=== PATIENT | male | born 1945 | race Caucasian/White ===

== ENCOUNTER 2021-04-05 08:32 | Emergency (ER) | payer MEDICARE, OTHER ==
[~2021-04-05] VITALS: Ht 182.9 cm; Wt 103.2 kg
[2021-04-05 08:46] VITALS: BP 145/77
[2021-04-05] MEDS ORDERED: APIX5TAB3 PO (11:02)
== END 2021-04-05 11:13 | disposition home or self-care (01) ==
LOC: ER 08:33
DX: I82.401 Acute embolism and thrombosis of unspecified deep veins of right lower extremity (principal); E11.9 Type 2 diabetes mellitus without complications; I10 Essential (primary) hypertension; Z88.8 Allergy status to other drugs, medicaments and biological substances
CPT/HCPCS: 93971; 99284

== ENCOUNTER 2021-07-05 07:53 | Inpatient (IN) | payer OTHER, MEDICARE ==
[~2021-07-05] VITALS: Ht 182.9 cm; Wt 112.0 kg
[~2021-07-05 07:53] MED LIST: APIX5TAB3 PO
[2021-07-05 09:23] LABS: CLARITY,URINE CLEAR (Clear); COLOR,URINE YELLOW (Yellow); GLUCOSE, URINE >=1000 mg/dl (Neg); KETONES,URINE 40 mg/dl (Neg); LEUKOCYTE ESTERASE ,URINE NEGATIVE (Neg); NITRITES, URINE NEGATIVE (Neg); OCCULT BLOOD,URINE TRACE-LYSED (Neg); PROTEIN,URINE 30 mg/dl (Neg); UROBILINOGEN,URINE 0.2 E.U/dL (0.2-1.0)
[2021-07-05 09:29] LABS: BASOPHILS # (AUTO) 0.1 X10'3 (0-0.2); BASOPHILS % (AUTO) 0.4 % (0-1); EOSINOPHILS % (AUTO) 0.2 % (0-6); HEMATOCRIT 44.9 % (42.0-52.0); HEMOGLOBIN 15.1 g/dl (14.0-17.9); LYMPHOCYTES # (AUTO) 0.8 X10'3 (1.1-4.8); MEAN CORPUSCULAR HEMOGLOBIN 31.2 PG (27.0-31.0); MEAN CORPUSCULAR HGB CONC 33.7 g/dL (33.0-36.5); MEAN CORPUSCULAR VOLUME 92.7 FL (78-98); MEAN PLATELET VOLUME 8.6 FL (7.4-10.4); MONOCYTES # (AUTO) 1.1 X10'3 (0-0.9); MONOCYTES % (AUTO) 6.7 % (2-12); NEUTROPHILS # (AUTO) 14.6 X10'3 (1.8-7.7); NEUTROPHILS % (AUTO) 87.7 % (42-75); PLATELET COUNT 228 X10'3 (140-440); RED BLOOD COUNT 4.84 X10'6 (4.70-6.10); RED CELL DISTRIBUTION WIDTH 12.8 % (11.5-14.5); WHITE BLOOD COUNT 16.7 X10'3 (4.5-11.0)
[2021-07-05 09:35] LABS: UA COLLECTION TYPE VOIDED
[2021-07-05 09:36] LABS: BACTERIA,URINE NONE SEEN /HPF (Neg); RBC,URINE 0-2 /HPF (0-2); SQUAMOUS EPITHELIAL CELL,UR NONE SEEN /LPF (FEW); WBC,URINE NONE SEEN /HPF (0-4)
[2021-07-05 09:48] LABS: ALANINE AMINOTRANSFERASE 23 U/L (12-78); ALBUMIN 3.2 G/DL (3.4-5.0); ALBUMIN/GLOBULIN RATIO 0.7 (1.1-1.5); ALKALINE PHOSPHATASE 89 IU/L (46-116); ANION GAP 10 (8-16); ASPARTATE AMINO TRANSFERASE 19 U/L (10-37); BILIRUBIN,TOTAL 1.1 MG/DL (0.1-1.0); BLOOD UREA NITROGEN 15 MG/DL (7-18); CHLORIDE 99 MMOL/L (99-107); CREATININE 1.15 MG/DL (0.60-1.10); GLUCOSE 164 MG/DL (70-104); LIPASE 70 U/L (73-393); POTASSIUM 3.5 MMOL/L (3.5-5.1); SODIUM 138 MMOL/L (135-145); TOTAL CARBON DIOXIDE 28.7 MMOL/L (24-32); TOTAL PROTEIN 8.1 G/DL (6.4-8.2); eGFR 62 ML/MIN
[2021-07-05] MEDS ORDERED: iohexol 300mg/ml 100ml inj. ONE (10:16)
[2021-07-05] MEDS ORDERED: piperacillin/tazo 3.375gm/50ml 50 ML IV ONE (11:10)
[2021-07-05] MEDS: MESSAGE TO NURSING PO NR (11:16)
[2021-07-05] MEDS: gabapentin 400mg capsule PO SCH ×2 (12:00→20:24)
[2021-07-05] MEDS ORDERED: magnesium 4gm in 100ml NS 100 ML IV PRN (12:10)
[2021-07-05] MEDS ORDERED: magnesium 2GM in 50ml NS 50 ML IV PRN (12:10)
[2021-07-05] MEDS ORDERED: magnesium Cl slow-release 64mg tablet PO PRN (12:10)
[2021-07-05] MEDS ORDERED: potassium Cl 40MEQ/1/2NS 520ml 520 ML IV PRN ×2 (12:10)
[2021-07-05] MEDS ORDERED: morphine 2 MG/ML inj. syringe IV PRN (12:10)
[2021-07-05] MEDS ORDERED: potassium Cl 20 mEq SR tablet PO PRN (12:10)
[2021-07-05] MEDS ORDERED: ondansetron/PF 4mg/2ml inj IV PRN (12:10)
[2021-07-05] MEDS ORDERED: ALOG25TA PO (12:57)
[2021-07-05] MEDS ORDERED: SITA50TA PO (12:57)
[2021-07-05] MEDS ORDERED: CELE100C98 PO (12:57)
[2021-07-05] MEDS ORDERED: CHOL20004 PO (12:57)
[2021-07-05] MEDS ORDERED: APIX5TAB3 PO (12:57)
[2021-07-05] MEDS ORDERED: OMEP20CA15 PO (12:57)
[2021-07-05] MEDS ORDERED: SIMV20TA PO ×2 (12:57→13:42)
[2021-07-05] MEDS ORDERED: METF750T46 PO (12:57)
[2021-07-05] MEDS ORDERED: ROSU10TA2 PO (12:57)
[2021-07-05] MEDS ORDERED: INSU300I SQ (12:59)
[2021-07-05] MEDS: normal saline 1000ml 1,000 ML IV SCH ×2 (13:19→22:40)
--- NOTE | 2021-07-05 13:29 | NUR ---
Pt given warm blanket. Pt denies any other requests at this time.
[2021-07-05] MEDS ORDERED: GABA-534 PO ×3 (13:36)
[2021-07-05] MEDS ORDERED: sincalide inj 2 MCG in normal saline 50ml IV soln 50 ML IV PRN (14:20)
[2021-07-05] MEDS: acetaminophen 325mg tablet PO PRN (17:45)
--- NOTE | 2021-07-05 19:10 | NUR ---
pt states is diabetic and hasnt eaten. pt requested blood sugar check as he would normally be taking unsilin. BG 113.
[2021-07-05] MEDS: K and/or MAG REPLACEMENT MC SCH (20:00)
[2021-07-05] MEDS: apixaban 5mg tablet PO SCH (20:25)
[2021-07-06] VITALS (18 sets, daily range): BP systolic 117–211; BP diastolic 53–114
[2021-07-06] MEDS: acetaminophen 325mg tablet PO PRN (03:04)
[2021-07-06 03:47] LABS: BASOPHILS # (AUTO) 0.1 X10'3 (0-0.2); BASOPHILS % (AUTO) 0.3 % (0-1); EOSINOPHILS % (AUTO) 0.2 % (0-6); HEMOGLOBIN 13.3 g/dl (14.0-17.9); LYMPHOCYTES # (AUTO) 0.9 X10'3 (1.1-4.8); LYMPHOCYTES % (AUTO) 5.8 % (21-51); MEAN CORPUSCULAR HEMOGLOBIN 30.6 PG (27.0-31.0); MEAN CORPUSCULAR HGB CONC 33.3 g/dL (33.0-36.5); MEAN CORPUSCULAR VOLUME 91.9 FL (78-98); MEAN PLATELET VOLUME 8.4 FL (7.4-10.4); MONOCYTES # (AUTO) 1.3 X10'3 (0-0.9); MONOCYTES % (AUTO) 8.3 % (2-12); NEUTROPHILS # (AUTO) 13.6 X10'3 (1.8-7.7); NEUTROPHILS % (AUTO) 85.4 % (42-75); PLATELET COUNT 217 X10'3 (140-440); RED BLOOD COUNT 4.36 X10'6 (4.70-6.10); RED CELL DISTRIBUTION WIDTH 13.2 % (11.5-14.5); WHITE BLOOD COUNT 15.9 X10'3 (4.5-11.0)
[2021-07-06 04:00] LABS: ALBUMIN 2.7 G/DL (3.4-5.0); ANION GAP 12 (8-16); BLOOD UREA NITROGEN 18 MG/DL (7-18); BUN/CREATININE RATIO 19.1 (5.4-32.0); CALCIUM 8.2 MG/DL (8.5-10.1); CHLORIDE 105 MMOL/L (99-107); CREATININE 0.94 MG/DL (0.60-1.10); GLUCOSE 84 MG/DL (70-104); POTASSIUM 3.3 MMOL/L (3.5-5.1); SODIUM 142 MMOL/L (135-145); TOTAL CARBON DIOXIDE 24.8 MMOL/L (24-32); eGFR 78 ML/MIN
[2021-07-06] MEDS: potassium Cl 20 mEq SR tablet PO PRN ×3 (05:14→20:17)
--- NOTE | 2021-07-06 05:25 | NUR ---
medications stored in pharmacy
--- NOTE | 2021-07-06 05:53 | NUR ---
pt feeling confused, dizzy, like hes in "ahother world", diaphortic. temp 98.1, BG 89. pt states when below 90, he experiences symptomatic hypogycemia. due to npo status and no IV dextrose ordered, gave pt 2 sweeties. will recheck bg
--- NOTE | 2021-07-06 06:17 | NUR ---
pt states symptoms resolving. pt is less shaky, not diaphoretic, and feeling less lightheaded.
--- NOTE | 2021-07-06 07:46 | NUR ---
pt to [facility] with , belongings
[2021-07-06] MEDS: cholecalciferol (vitamin D3) 1,000 unit (25mcg) tablet PO SCH (08:00)
[2021-07-06] MEDS: apixaban 5mg tablet PO SCH ×2 (08:00→20:19)
[2021-07-06] MEDS: atorvastatin 10mg tablet PO SCH (08:00)
[2021-07-06] MEDS: pantoprazole 40mg Tablet.DR PO SCH (08:00)
[2021-07-06] MEDS: gabapentin 400mg capsule PO SCH ×3 (08:00→20:20)
[2021-07-06] MEDS ORDERED: ringers solution, lacted 1,000 ML IV ONE (09:55)
[2021-07-06] MEDS: K and/or MAG REPLACEMENT MC SCH ×2 (10:00→20:37)
[2021-07-06] MEDS ORDERED: morphine 2 MG/ML inj. syringe IV PRN ×2 (10:55→14:20)
[2021-07-06] MEDS: normal saline 1000ml 1,000 ML IV SCH (11:37)
[2021-07-06] MEDS ORDERED: BUPIVAcaine/PF 2.5mg/ml (0.25%) 10ml vial ONE (13:28)
[2021-07-06] MEDS ORDERED: rocuronium 10mg/ml inj IV ONE ×2 (13:29→13:39)
[2021-07-06] MEDS ORDERED: dexamethasone sod phosphate 10mg/ml inj ONE (13:29)
[2021-07-06] MEDS ORDERED: sevoflurane 250ml liquid IH ONE (13:29)
[2021-07-06] MEDS ORDERED: fentaNYL/PF 50MCG/1 ML 2ML syringe ONE (13:31)
[2021-07-06] MEDS ORDERED: midazolam 1 mg/ML 2ml injection ONE (13:31)
[2021-07-06] MEDS ORDERED: glycopyrrolate 0.2mg/ml inj ONE (13:40)
[2021-07-06] MEDS ORDERED: propofol inj 20 ML IV ONE (13:40)
[2021-07-06] MEDS ORDERED: neostigmine methylsulfate 1 MG/ML 10ml vial ONE (13:40)
[2021-07-06] MEDS ORDERED: ondansetron/PF 4mg/2ml inj ONE (13:40)
[2021-07-06] MEDS ORDERED: LIDOcaine 2% (20mg/ml) 5ml vial ONE (13:40)
[2021-07-06] MEDS ORDERED: ceFAZolin 1000mg inj ONE ×2 (13:41)
[2021-07-06] MEDS ORDERED: labetalol 20mg/4ml (5mg/ml) syringe IV ONE (14:04)
[2021-07-06] MEDS ORDERED: ringers solution, lacted 1,000 ML IV SCH (14:20)
[2021-07-06] MEDS ORDERED: ondansetron/PF 4mg/2ml inj IV PRN ×2 (14:20→15:10)
[2021-07-06] MEDS ORDERED: hydrALAZINE 20mg/ml inj. IV PRN (14:20)
[2021-07-06] MEDS ORDERED: fentaNYL/PF 50MCG/1 ML 2ML syringe IV PRN (14:20)
[2021-07-06] MEDS ORDERED: morphine 4 MG/ML inj SYRINge IV PRN (14:20)
--- NOTE | 2021-07-06 14:48 | NUR ---
ASSUME CARE PT NOT AWAKE UNRESP TO TACTILE STIMULI, BP, HR ELEVATED RR 30 SAT 90% ON 10 L FM. CONT TO MONITOR. ABD DRESSING CDI WITH ANTOINETTE SECURED. IV IN RAC 20G. Addendum: 07/06/21 at 1540 by Constance Castellano RN Amended: Links added.
[2021-07-06] MEDS: labetalol 20mg/4ml (5mg/ml) syringe IV PRN ×2 (14:55→15:00)
--- NOTE | 2021-07-06 15:00 | NUR ---
PT UNRESP RR LABORED USING ACCESSORY MUSCLES, HR, BP ELEVATED TX WITH LABETALOL 5MG IV PER ORDERS, DR SUDARSHAN COLLIER CALLED BACK TO ROOM PT REVERSED. CONT TO MONITOR. Addendum: 07/06/21 at 1540 by Constance Castellano RN Amended: Links added.
[2021-07-06] MEDS ORDERED: sugammadex 200mg/2ml injection IV ONE (15:05)
--- NOTE | 2021-07-06 15:39 | NUR ---
PT AWAKE ALERT VSS DENIES PAIN FOLLOWING SIMPLE COMMANDS. Addendum: 07/06/21 at 1540 by Constance Castellano RN Amended: Links added.
[2021-07-06] MEDS: fentaNYL/PF 50MCG/1 ML 2ML syringe IV PRN ×2 (15:44→15:50)
--- NOTE | 2021-07-06 16:15 | NUR ---
Report received from PROGRAM MGR, Constance Garg.
[2021-07-06] MEDS: Potassium Cl inj 20 MEQ in ringers solution, lacted 1,000 ML IV SCH ×2 (16:30→20:13)
[2021-07-06] MEDS ORDERED: glucagon, human recombinant 1mg kit SUBCUT PRN (18:05)
[2021-07-06] MEDS ORDERED: MESSAGE TO PHARMACY PO ONE (18:05)
[2021-07-06] MEDS ORDERED: dextrose 50%-water 50ml dispensing syringe IV PRN ×2 (18:05)
[2021-07-06] MEDS ORDERED: dextrose ORAL solution 15 GM/59 ML bottle PO PRN ×2 (18:05)
--- NOTE | 2021-07-06 18:23 | NUR ---
Patient in room [facility]. I have received report from Elizabeth LAGUNA and had the opportunity to ask questions and assume patient care.
--- NOTE | 2021-07-06 18:30 | NUR ---
Problems reprioritized. Patient report given, questions answered & plan of care reviewed with JASE Dobbins.
[2021-07-06] MEDS: benzocaine/menthol oral lozeng 1 EACH BOX MM PRN (20:29)
[2021-07-06] MEDS: insulin glargine (Lantus) pen - multi-dose SQ SCH (21:00)
[2021-07-07] MEDS: benzocaine/menthol oral lozeng 1 EACH BOX MM PRN (00:58)
[2021-07-07] MEDS: HYDROcodone/acetaminophen 10/325mg tab PO PRN ×2 (00:59→10:04)
--- NOTE | 2021-07-07 03:09 | NUR ---
HS accu check was 184, but no down time forms to fill out for.
[2021-07-07] MEDS: Potassium Cl inj 20 MEQ in ringers solution, lacted 1,000 ML IV SCH ×3 (03:54→20:28)
[2021-07-07] MEDS ORDERED: famotidine 20mg tablet PO ONE (06:00)
[2021-07-07 06:01] LABS: BASOPHILS % (AUTO) 0.1 % (0-1); EOSINOPHILS % (AUTO) 0 % (0-6); HEMOGLOBIN 13.7 g/dl (14.0-17.9); LYMPHOCYTES # (AUTO) 0.8 X10'3 (1.1-4.8); LYMPHOCYTES % (AUTO) 6.1 % (21-51); MEAN CORPUSCULAR HEMOGLOBIN 31.1 PG (27.0-31.0); MEAN CORPUSCULAR HGB CONC 33.4 g/dL (33.0-36.5); MEAN CORPUSCULAR VOLUME 93.1 FL (78-98); MEAN PLATELET VOLUME 8.2 FL (7.4-10.4); MONOCYTES # (AUTO) 0.6 X10'3 (0-0.9); MONOCYTES % (AUTO) 4.9 % (2-12); NEUTROPHILS # (AUTO) 10.9 X10'3 (1.8-7.7); NEUTROPHILS % (AUTO) 88.9 % (42-75); PLATELET COUNT 259 X10'3 (140-440); RED CELL DISTRIBUTION WIDTH 13.5 % (11.5-14.5); WHITE BLOOD COUNT 12.3 X10'3 (4.5-11.0)
[2021-07-07 06:17] LABS: ALBUMIN 2.6 G/DL (3.4-5.0); ANION GAP 14 (8-16); BLOOD UREA NITROGEN 25 MG/DL (7-18); BUN/CREATININE RATIO 21.4 (5.4-32.0); CALCIUM 8.6 MG/DL (8.5-10.1); CHLORIDE 107 MMOL/L (99-107); CREATININE 1.17 MG/DL (0.60-1.10); GLUCOSE 227 MG/DL (70-104); POTASSIUM 4.6 MMOL/L (3.5-5.1); SODIUM 141 MMOL/L (135-145); eGFR 61 ML/MIN
--- NOTE | 2021-07-07 06:20 | NUR ---
Patient in room [facility] 356. I have received report from JASE Dobbins and had the opportunity to ask questions and assume patient care.
[2021-07-07 06:30] VITALS: BP 141/66
--- NOTE | 2021-07-07 06:52 | NUR ---
Problems reprioritized. Patient report given, questions answered & plan of care reviewed with Elizabeth RN.
[2021-07-07] MEDS: K and/or MAG REPLACEMENT MC SCH ×2 (07:46→17:39)
[2021-07-07] MEDS: MESSAGE TO NURSING PO NR (07:47)
[2021-07-07] MEDS ORDERED: gabapentin 400mg capsule PO SCH ×3 (08:00→12:15)
--- NOTE | 2021-07-07 09:14 | NUR ---
Noted pt with T2DM, current A1c is 7.8%, well controlled for age. DM education not indicated at this time. Will continue to follow. Addendum: 07/07/21 at [address] Amended: Links added.
[2021-07-07] MEDS: pantoprazole 40mg Tablet.DR PO SCH (10:02)
[2021-07-07] MEDS: atorvastatin 10mg tablet PO SCH (10:02)
[2021-07-07] MEDS: gabapentin 400mg capsule PO SCH ×2 (10:02→20:28)
[2021-07-07] MEDS: apixaban 5mg tablet PO SCH ×2 (10:02→20:28)
[2021-07-07] MEDS: cholecalciferol (vitamin D3) 1,000 unit (25mcg) tablet PO SCH (10:02)
[2021-07-07 11:00] VITALS: BP 148/69
[2021-07-07] MEDS: piperacillin/tazo 3.375gm/50ml 50 ML IV SCH ×2 (11:17→16:24)
[2021-07-07] MEDS: insulin Lispro (HumaLOG) vial - multi-dose SQ SCH ×2 (13:25→19:05)
[2021-07-07 18:30] VITALS: BP 136/56
[2021-07-07] MEDS: insulin glargine (Lantus) pen - multi-dose SQ SCH (20:45)
[2021-07-07 23:30] VITALS: BP 108/50
--- NOTE | 2021-07-08 | NUR ---
Patient in room [facility]. I have received report from Elizabeth LAGUNA and had the opportunity to ask questions and assume patient care. Addendum: 07/08/21 at 0620 by Anca Nelson RN Amended: Links added.
--- NOTE | 2021-07-08 | NUR ---
Patient in room [facility]. I have received report from Elizabeth LAGUNA and had the opportunity to ask questions and assume patient care.
[2021-07-08] MEDS: piperacillin/tazo 3.375gm/50ml 50 ML IV SCH (00:10)
--- NOTE | 2021-07-08 00:40 | NUR ---
Problems reprioritized. Patient report given, questions answered & plan of care reviewed with JASE March.
[2021-07-08] MEDS: HYDROcodone/acetaminophen 10/325mg tab PO PRN ×2 (02:01→08:23)
[2021-07-08] MEDS: Potassium Cl inj 20 MEQ in ringers solution, lacted 1,000 ML IV SCH (04:05)
[2021-07-08 05:44] LABS: BASOPHILS % (AUTO) 0.4 % (0-1); EOSINOPHILS # (AUTO) 0.2 X10'3 (0-0.9); EOSINOPHILS % (AUTO) 1.3 % (0-6); HEMATOCRIT 37.9 % (42.0-52.0); HEMOGLOBIN 12.6 g/dl (14.0-17.9); LYMPHOCYTES # (AUTO) 1.8 X10'3 (1.1-4.8); LYMPHOCYTES % (AUTO) 13.7 % (21-51); MEAN CORPUSCULAR HEMOGLOBIN 30.8 PG (27.0-31.0); MEAN CORPUSCULAR HGB CONC 33.2 g/dL (33.0-36.5); MEAN CORPUSCULAR VOLUME 92.6 FL (78-98); MEAN PLATELET VOLUME 7.8 FL (7.4-10.4); MONOCYTES # (AUTO) 1.2 X10'3 (0-0.9); MONOCYTES % (AUTO) 9.5 % (2-12); NEUTROPHILS # (AUTO) 9.6 X10'3 (1.8-7.7); NEUTROPHILS % (AUTO) 75.1 % (42-75); PLATELET COUNT 277 X10'3 (140-440); RED BLOOD COUNT 4.09 X10'6 (4.70-6.10); RED CELL DISTRIBUTION WIDTH 13.6 % (11.5-14.5); WHITE BLOOD COUNT 12.8 X10'3 (4.5-11.0)
--- NOTE | 2021-07-08 06:04 | NUR ---
Problems reprioritized. Patient report given, questions answered & plan of care reviewed with Xuan LAGUNA. Addendum: 07/08/21 at 0620 by Anca Nelson RN Amended: Links added.
[2021-07-08 06:15] LABS: ALBUMIN 2.4 G/DL (3.4-5.0); ANION GAP 10 (8-16); BLOOD UREA NITROGEN 27 MG/DL (7-18); BUN/CREATININE RATIO 21.4 (5.4-32.0); CALCIUM 8.6 MG/DL (8.5-10.1); CHLORIDE 108 MMOL/L (99-107); CREATININE 1.26 MG/DL (0.60-1.10); GLUCOSE 126 MG/DL (70-104); MAGNESIUM 2.2 MG/DL (1.5-2.4); SODIUM 144 MMOL/L (135-145); TOTAL CARBON DIOXIDE 25.8 MMOL/L (24-32); eGFR 56 ML/MIN
--- NOTE | 2021-07-08 06:25 | NUR ---
Patient in room [facility] 356. I have received report from Anca LAGUNA and had the opportunity to ask questions and assume patient care.
[2021-07-08 07:00] VITALS: BP 147/64
[2021-07-08 07:24] LABS: BILIRUBIN,TOTAL 0.4 MG/DL (0.1-1.0)
[2021-07-08] MEDS: apixaban 5mg tablet PO SCH (08:22)
[2021-07-08] MEDS: gabapentin 400mg capsule PO SCH (08:23)
[2021-07-08] MEDS: atorvastatin 10mg tablet PO SCH (08:23)
[2021-07-08] MEDS: pantoprazole 40mg Tablet.DR PO SCH (08:23)
[2021-07-08] MEDS: cholecalciferol (vitamin D3) 1,000 unit (25mcg) tablet PO SCH (08:23)
[2021-07-08] MEDS ORDERED: amox tr/potassium clavulanate 875/125mg TAB PO SCH (08:30)
[2021-07-08] MEDS ORDERED: HYDR-3965 PO (10:44)
[2021-07-08] MEDS ORDERED: AMOX-580 PO (10:44)
--- NOTE | 2021-07-08 11:22 | NUR ---
Discharge instructions given to patient, patient verbalized understanding of all instructions given to him. present at bedside during discharge instruction. Original, written prescription for [place] and Augmentin given to patient, placed inside the discharge folder. Peripheral IV catheter removed, tip intact. Patient's own medications stored in the hospital pharmacy was returned to patient. Instructed patient to ensure he has all his belongings with him before leaving the hospital.
== END 2021-07-08 11:27 | disposition home or self-care (01) | DRG 419 ==
LOC: ER 07:54 → ED HOLD 12:11 → SUR 3N 07-06 16:11
PROVIDERS: ADMIT Internal Medicine; ATTEND Internal Medicine
PROC: BW211ZZ Computerized Tomography (CT Scan) of Abdomen and Pelvis using Low Osmolar Contrast (ICD-10-PCS; 2021-07-05)
PROC: 8E0W4CZ Robotic Assisted Procedure of Trunk Region, Percutaneous Endoscopic Approach (ICD-10-PCS; 2021-07-06)
PROC: CF1C1ZZ Planar Nuclear Medicine Imaging of Hepatobiliary System, All using Technetium 99m (Tc-99m) (ICD-10-PCS; 2021-07-06)
PROC: 0FB44ZZ Excision of Gallbladder, Percutaneous Endoscopic Approach (ICD-10-PCS; principal; 2021-07-06 13:29)
DX: K81.0 Acute cholecystitis (principal); K21.9 Gastro-esophageal reflux disease without esophagitis; K82.A1 Gangrene of gallbladder in cholecystitis; E78.5 Hyperlipidemia, unspecified; I10 Essential (primary) hypertension; E66.9 Obesity, unspecified; Z20.822 Contact with and (suspected) exposure to COVID-19; K82.8 Other specified diseases of gallbladder; E11.42 Type 2 diabetes mellitus with diabetic polyneuropathy; Z86.718 Personal history of other venous thrombosis and embolism; Z79.4 Long term (current) use of insulin; Z87.442 Personal history of urinary calculi; Z88.8 Allergy status to other drugs, medicaments and biological substances; Z79.01 Long term (current) use of anticoagulants; Z79.899 Other long term (current) drug therapy; Z68.33 Body mass index [BMI] 33.0-33.9, adult
CPT/HCPCS: 36415; 74177; 78226; 80048; 80053; 81001; 82247; 82948; 83036; 83690; 83735; 85025; 87081; 87635; 93005; 99285; A4215; A4618; A6402; A6449; A7000; A9537; C9399; G0378; J0690; J1100; J1815; J2001; J2250; J2270; J2405; J2543; J2704; J2710; J3010; J3480; J3490; J7030; J7120; Q9967

== ENCOUNTER 2021-07-12 09:02 | Inpatient (IN) | payer OTHER, MEDICARE ==
[~2021-07-12] VITALS: Ht 182.9 cm; Wt 102.3 kg
[~2021-07-12 09:02] MED LIST changes: +AMOX-580 PO; +CELE100C98 PO; +CHOL20004 PO; +GABA-534 PO; +HYDR-3965 PO; +INSU300I SQ; +METF750T46 PO; +OMEP20CA15 PO; +SIMV20TA PO; +SITA50TA PO
[2021-07-12] MEDS ORDERED: normal saline 1000ml 1,000 ML IV ONE ×2 (09:25→11:20)
[2021-07-12] MEDS ORDERED: iohexol 300mg/ml 100ml inj. ONE (09:44)
[2021-07-12 09:54] LABS: BASOPHILS % (AUTO) 0.1 % (0-1); EOSINOPHILS % (AUTO) 0.2 % (0-6); HEMATOCRIT 42.1 % (42.0-52.0); HEMOGLOBIN 14.1 g/dl (14.0-17.9); LYMPHOCYTES # (AUTO) 0.6 X10'3 (1.1-4.8); LYMPHOCYTES % (AUTO) 3.9 % (21-51); MEAN CORPUSCULAR HEMOGLOBIN 30.8 PG (27.0-31.0); MEAN CORPUSCULAR HGB CONC 33.4 g/dL (33.0-36.5); MEAN CORPUSCULAR VOLUME 92.2 FL (78-98); MONOCYTES # (AUTO) 0.8 X10'3 (0-0.9); MONOCYTES % (AUTO) 4.8 % (2-12); NEUTROPHILS # (AUTO) 15.2 X10'3 (1.8-7.7); PLATELET COUNT 270 X10'3 (140-440); RED BLOOD COUNT 4.57 X10'6 (4.70-6.10); RED CELL DISTRIBUTION WIDTH 13.2 % (11.5-14.5); WHITE BLOOD COUNT 16.7 X10'3 (4.5-11.0)
[2021-07-12 10:01] LABS: CLARITY,URINE CLEAR (Clear); COLOR,URINE STRAW (Yellow); GLUCOSE, URINE >=1000 mg/dl (Neg); KETONES,URINE TRACE mg/dl (Neg); LEUKOCYTE ESTERASE ,URINE NEGATIVE (Neg); NITRITES, URINE NEGATIVE (Neg); OCCULT BLOOD,URINE MODERATE (Neg); PROTEIN,URINE NEGATIVE (Neg); UROBILINOGEN,URINE 0.2 E.U/dL (0.2-1.0)
[2021-07-12 10:09] LABS: UA COLLECTION TYPE URINAL
[2021-07-12] MEDS: morphine 2 MG/ML inj. syringe IV PRN ×2 (10:13→11:31)
[2021-07-12 10:30] LABS: BACTERIA,URINE N /HPF (Neg); MUCUS STRANDS NONE SEEN /LPF (Neg); SQUAMOUS EPITHELIAL CELL,UR FEW /LPF (FEW); WBC,URINE 0-4 /HPF (0-4); YEAST FEW /HPF (NEGATIVE)
[2021-07-12 10:41] LABS: ALANINE AMINOTRANSFERASE 25 U/L (12-78); ALBUMIN 2.7 G/DL (3.4-5.0); ALBUMIN/GLOBULIN RATIO 0.6 (1.1-1.5); ALKALINE PHOSPHATASE 89 IU/L (46-116); ANION GAP 10 (8-16); ASPARTATE AMINO TRANSFERASE 17 U/L (10-37); BILIRUBIN,TOTAL 0.6 MG/DL (0.1-1.0); BLOOD UREA NITROGEN 41 MG/DL (7-18); BUN/CREATININE RATIO 18.7 (5.4-32.0); CALCIUM 8.5 MG/DL (8.5-10.1); CHLORIDE 101 MMOL/L (99-107); CREATININE 2.19 MG/DL (0.60-1.10); LIPASE 106 U/L (73-393); POTASSIUM 4.5 MMOL/L (3.5-5.1); SODIUM 136 MMOL/L (135-145); TOTAL CARBON DIOXIDE 25.1 MMOL/L (24-32); TOTAL PROTEIN 6.9 G/DL (6.4-8.2); eGFR 29 ML/MIN
[2021-07-12 11:07] LABS: GLUCOSE 555 MG/DL (70-104)
--- NOTE | 2021-07-12 11:13 | NUR ---
Blood sugar 555. Pt has not been taking his DM since before surgey last week.
[2021-07-12] MEDS ORDERED: NPH, human insulin isophane inj. SQ ONE (11:20)
[2021-07-12] MEDS ORDERED: insulin regular, human 10 units/0.1 ml syringe SQ ONE (11:55)
--- NOTE | 2021-07-12 13:16 | NUR ---
ANTOINETTE DRAINED WITH APPROX 50ML OF FLUID
[2021-07-12] MEDS ORDERED: HYDR-3965 PO (14:47)
[2021-07-12] MEDS ORDERED: AMOX-117 PO (14:47)
[2021-07-12] MEDS ORDERED: acetaminophen 325mg tablet PO PRN (15:30)
[2021-07-12] MEDS ORDERED: potassium Cl 40MEQ/1/2NS 520ml 520 ML IV PRN ×2 (15:30)
[2021-07-12] MEDS ORDERED: magnesium 2GM in 50ml NS 50 ML IV PRN (15:30)
[2021-07-12] MEDS ORDERED: magnesium hydroxide 30ml (MOM) UD suspension PO PRN (15:30)
[2021-07-12] MEDS ORDERED: bisacodyl 10mg suppository rectal RC PRN (15:30)
[2021-07-12] MEDS ORDERED: potassium Cl 20 mEq SR tablet PO PRN ×2 (15:30)
[2021-07-12] MEDS ORDERED: ondansetron/PF 4mg/2ml inj IV PRN (15:30)
[2021-07-12] MEDS ORDERED: HYDROcodone/acetaminophen 5mg/325mg tablet PO PRN (15:30)
[2021-07-12] MEDS ORDERED: magnesium 4gm in 100ml NS 100 ML IV PRN (15:30)
[2021-07-12] MEDS ORDERED: morphine 2 MG/ML inj. syringe IV PRN (15:30)
[2021-07-12] MEDS ORDERED: magnesium Cl slow-release 64mg tablet PO PRN (15:30)
[2021-07-12] MEDS: CefTRIAXone/D5W-Rocephin 1gm 50 ML IV SCH (16:15)
[2021-07-12] MEDS: normal saline 1000ml 1,000 ML IV SCH (16:15)
[2021-07-12] MEDS ORDERED: MESSAGE TO PHARMACY PO ONE (18:50)
[2021-07-12] MEDS ORDERED: glucagon, human recombinant 1mg kit SUBCUT PRN (18:50)
[2021-07-12] MEDS ORDERED: dextrose 50%-water 50ml dispensing syringe IV PRN ×2 (18:50)
[2021-07-12] MEDS ORDERED: dextrose ORAL solution 15 GM/59 ML bottle PO PRN ×2 (18:50)
[2021-07-12] MEDS ORDERED: insulin Lispro (HumaLOG) vial - multi-dose SQ SCH (18:50)
[2021-07-12] MEDS: K and/or MAG REPLACEMENT MC SCH (20:00)
[2021-07-12] MEDS: docusate sod 100mg capsule PO SCH (20:00)
--- NOTE | 2021-07-12 20:00 | NUR ---
Pt sleeping with + rise and fall of chest noted. Ibrahim catheter continues to drain. ANTOINETTE drain in place.
[2021-07-12] MEDS ORDERED: tamsulosin 0.4mg capsule PO ONE (21:00)
[2021-07-12] MEDS ORDERED: insulin glargine (Lantus) pen - multi-dose SQ SCH (21:00)
[2021-07-12] MEDS ORDERED: gabapentin 400mg capsule PO SCH (21:00)
--- NOTE | 2021-07-13 01:17 | NUR ---
Pt sleeping with no complaints voiced or reported.
[2021-07-13] MEDS: normal saline 1000ml 1,000 ML IV SCH (02:57)
[2021-07-13 04:18] LABS: BASOPHILS # (AUTO) 0.1 X10'3 (0-0.2); BASOPHILS % (AUTO) 0.5 % (0-1); EOSINOPHILS # (AUTO) 0.2 X10'3 (0-0.9); EOSINOPHILS % (AUTO) 1.9 % (0-6); HEMATOCRIT 39.4 % (42.0-52.0); HEMOGLOBIN 13.3 g/dl (14.0-17.9); LYMPHOCYTES # (AUTO) 1.2 X10'3 (1.1-4.8); MEAN CORPUSCULAR HEMOGLOBIN 30.4 PG (27.0-31.0); MEAN CORPUSCULAR HGB CONC 33.7 g/dL (33.0-36.5); MEAN CORPUSCULAR VOLUME 90.3 FL (78-98); MEAN PLATELET VOLUME 7.8 FL (7.4-10.4); MONOCYTES # (AUTO) 0.7 X10'3 (0-0.9); NEUTROPHILS # (AUTO) 9.1 X10'3 (1.8-7.7); NEUTROPHILS % (AUTO) 80.6 % (42-75); PLATELET COUNT 225 X10'3 (140-440); RED BLOOD COUNT 4.36 X10'6 (4.70-6.10); RED CELL DISTRIBUTION WIDTH 13.3 % (11.5-14.5); WHITE BLOOD COUNT 11.3 X10'3 (4.5-11.0)
[2021-07-13 04:32] LABS: ALBUMIN 2.3 G/DL (3.4-5.0); ANION GAP 8 (8-16); BLOOD UREA NITROGEN 22 MG/DL (7-18); BUN/CREATININE RATIO 20.6 (5.4-32.0); CALCIUM 8.2 MG/DL (8.5-10.1); CHLORIDE 111 MMOL/L (99-107); CREATININE 1.07 MG/DL (0.60-1.10); GLUCOSE 235 MG/DL (70-104); MAGNESIUM 2.1 MG/DL (1.5-2.4); POTASSIUM 3.9 MMOL/L (3.5-5.1); SODIUM 147 MMOL/L (135-145); TOTAL CARBON DIOXIDE 27.6 MMOL/L (24-32); eGFR 67 ML/MIN
[2021-07-13 05:47] VITALS: BP 110/61
[2021-07-13] MEDS: CefTRIAXone/D5W-Rocephin 1gm 50 ML IV SCH (07:50)
[2021-07-13] MEDS: docusate sod 100mg capsule PO SCH (07:50)
--- NOTE | 2021-07-13 07:58 | NUR ---
Page Sent PAGER ID: [phone] MESSAGE: [email or web address] ROSAS [id number]. Pt in room 14, Domi Currie, would like to leave AMA.
[2021-07-13] MEDS ORDERED: atorvastatin 10mg tablet PO SCH (08:00)
[2021-07-13] MEDS: K and/or MAG REPLACEMENT MC SCH (08:00)
[2021-07-13] MEDS ORDERED: cholecalciferol (vitamin D3) 1,000 unit (25mcg) tablet PO SCH (08:00)
[2021-07-13] MEDS ORDERED: gabapentin 400mg capsule PO SCH ×2 (08:00→12:00)
[2021-07-13] MEDS ORDERED: pantoprazole 40 MG vial IV SCH (08:00)
--- NOTE | 2021-07-13 08:45 | NUR ---
Dr. Aburto aware of pt's intention to leave ama.
[2021-07-14] MEDS ORDERED: AMOX-117 PO (13:24)
== END 2021-07-13 19:02 | disposition left against medical advice (07) | DRG 690 ==
LOC: ER 09:03 → ED HOLD 15:33 → ORTHO 4S 07-13 16:13
PROVIDERS: ADMIT Internal Medicine; ATTEND Internal Medicine
DX: N13.6 Pyonephrosis (principal); N17.0 Acute kidney failure with tubular necrosis; I10 Essential (primary) hypertension; E11.42 Type 2 diabetes mellitus with diabetic polyneuropathy; R63.0 Anorexia; Z53.29 Procedure and treatment not carried out because of patient's decision for other reasons; E78.5 Hyperlipidemia, unspecified; K21.9 Gastro-esophageal reflux disease without esophagitis; E11.65 Type 2 diabetes mellitus with hyperglycemia; Z90.49 Acquired absence of other specified parts of digestive tract; Z68.30 Body mass index [BMI] 30.0-30.9, adult; Z88.8 Allergy status to other drugs, medicaments and biological substances; Z79.899 Other long term (current) drug therapy; Z79.4 Long term (current) use of insulin
CPT/HCPCS: 36415; 74176; 80048; 80053; 81001; 82948; 83690; 83735; 85025; 96361; 96372; 96374; 96375; 99285; C9113; G0378; J0696; J1815; J2270; J7030; Q9967

== ENCOUNTER 2021-07-14 10:07 | Emergency (ER) | payer OTHER, MEDICARE ==
[~2021-07-14] VITALS: Ht 182.9 cm; Wt 102.3 kg
[~2021-07-14 10:07] MED LIST changes: +AMOX-117 PO; -AMOX-580 PO
[2021-07-14 10:20] VITALS: BP 168/77
[2021-07-14 11:53] LABS: BASOPHILS # (AUTO) 0.1 X10'3 (0-0.2); BASOPHILS % (AUTO) 0.4 % (0-1); EOSINOPHILS % (AUTO) 0.2 % (0-6); HEMATOCRIT 45.7 % (42.0-52.0); HEMOGLOBIN 15.3 g/dl (14.0-17.9); LYMPHOCYTES # (AUTO) 0.9 X10'3 (1.1-4.8); LYMPHOCYTES % (AUTO) 5.4 % (21-51); MEAN CORPUSCULAR HEMOGLOBIN 30.6 PG (27.0-31.0); MEAN CORPUSCULAR HGB CONC 33.4 g/dL (33.0-36.5); MEAN CORPUSCULAR VOLUME 91.7 FL (78-98); MONOCYTES # (AUTO) 0.9 X10'3 (0-0.9); MONOCYTES % (AUTO) 5.5 % (2-12); NEUTROPHILS # (AUTO) 14.7 X10'3 (1.8-7.7); NEUTROPHILS % (AUTO) 88.5 % (42-75); PLATELET COUNT 310 X10'3 (140-440); RED BLOOD COUNT 4.98 X10'6 (4.70-6.10); RED CELL DISTRIBUTION WIDTH 13.2 % (11.5-14.5); WHITE BLOOD COUNT 16.6 X10'3 (4.5-11.0)
[2021-07-14 12:10] LABS: ALANINE AMINOTRANSFERASE 29 U/L (12-78); ALBUMIN 3.1 G/DL (3.4-5.0); ALBUMIN/GLOBULIN RATIO 0.7 (1.1-1.5); ALKALINE PHOSPHATASE 97 IU/L (46-116); ANION GAP 13 (8-16); ASPARTATE AMINO TRANSFERASE 22 U/L (10-37); BILIRUBIN,TOTAL 0.7 MG/DL (0.1-1.0); BLOOD UREA NITROGEN 26 MG/DL (7-18); BUN/CREATININE RATIO 17.2 (5.4-32.0); CALCIUM 8.8 MG/DL (8.5-10.1); CHLORIDE 103 MMOL/L (99-107); CREATININE 1.51 MG/DL (0.60-1.10); GLUCOSE 404 MG/DL (70-104); LIPASE 110 U/L (73-393); POTASSIUM 3.8 MMOL/L (3.5-5.1); SODIUM 142 MMOL/L (135-145); TOTAL PROTEIN 7.5 G/DL (6.4-8.2); eGFR 45 ML/MIN
[2021-07-14] MEDS ORDERED: AMOX-117 PO (13:24)
== END 2021-07-14 13:33 | disposition home or self-care (01) ==
LOC: ER 10:07
DX: R33.9 Retention of urine, unspecified (principal); R10.9 Unspecified abdominal pain; D72.829 Elevated white blood cell count, unspecified; N19 Unspecified kidney failure; I10 Essential (primary) hypertension; E11.9 Type 2 diabetes mellitus without complications; Z98.890 Other specified postprocedural states; Z88.6 Allergy status to analgesic agent; Z79.899 Other long term (current) drug therapy
CPT/HCPCS: 36415; 51702; 76705; 80053; 83690; 85025; 99284

== ENCOUNTER 2021-07-16 14:16 | Emergency (ER) | payer OTHER, MEDICARE ==
[~2021-07-16] VITALS: Ht 182.9 cm; Wt 112.5 kg
[2021-07-16 14:42] VITALS: BP 133/75
== END 2021-07-16 14:54 | disposition home or self-care (01) ==
LOC: ER 14:45
DX: T83.098A Other mechanical complication of other urinary catheter, initial encounter (principal); I10 Essential (primary) hypertension; E11.9 Type 2 diabetes mellitus without complications; Z90.49 Acquired absence of other specified parts of digestive tract; Z79.2 Long term (current) use of antibiotics; Z79.899 Other long term (current) drug therapy; Z79.4 Long term (current) use of insulin; Y92.89 Other specified places as the place of occurrence of the external cause
CPT/HCPCS: 99281

== ENCOUNTER 2021-07-16 18:36 | Emergency (ER) | payer OTHER, MEDICARE ==
[~2021-07-16] VITALS: Ht 182.9 cm; Wt 102.3 kg
[2021-07-16 19:09] VITALS: BP 139/61
[2021-07-16] MEDS ORDERED: LIDOcaine 2% 10ml TOPICAL JELLY (Urojet) TP ONE (19:15)
== END 2021-07-16 20:18 | disposition home or self-care (01) ==
LOC: ER 18:36
DX: R33.9 Retention of urine, unspecified (principal); I10 Essential (primary) hypertension; E11.9 Type 2 diabetes mellitus without complications; Z90.49 Acquired absence of other specified parts of digestive tract; Z98.890 Other specified postprocedural states; Z79.899 Other long term (current) drug therapy; Z79.2 Long term (current) use of antibiotics; Z88.6 Allergy status to analgesic agent
CPT/HCPCS: 51702; 99284

== ENCOUNTER 2021-07-23 23:18 | Emergency (ER) | payer OTHER, MEDICARE ==
[~2021-07-23] VITALS: Ht 182.9 cm; Wt 90.9 kg
[2021-07-24 00:32] VITALS: BP 124/59
== END 2021-07-24 02:44 | disposition home or self-care (01) ==
LOC: ER 23:18
DX: R33.9 Retention of urine, unspecified (principal); R10.30 Lower abdominal pain, unspecified; R14.0 Abdominal distension (gaseous); I10 Essential (primary) hypertension; E11.9 Type 2 diabetes mellitus without complications; Z46.6 Encounter for fitting and adjustment of urinary device; Z90.49 Acquired absence of other specified parts of digestive tract; Z98.890 Other specified postprocedural states; Z88.6 Allergy status to analgesic agent; Z79.2 Long term (current) use of antibiotics; Z79.899 Other long term (current) drug therapy
CPT/HCPCS: 51702; 99284

== ENCOUNTER 2021-07-30 15:00 | Emergency (ER) | payer OTHER, MEDICARE ==
[~2021-07-30] VITALS: Ht 182.9 cm; Wt 87.7 kg
[2021-07-30] MEDS ORDERED: LIDOcaine 2% 10ml TOPICAL JELLY (Urojet) MM STA (19:24)
[2021-07-30] MEDS ORDERED: LIDOcaine 2% 10ml TOPICAL JELLY (Urojet) TP ONE (19:35)
--- NOTE | 2021-07-30 20:10 | NUR ---
Pt has had intermittent foleys x5wk due to gallbladde surgey/foot surgery; removed this am and hasn't urinated all day; instant relief after simon placement; pt tolerated well; vss in nad; will send home with instructions to f/u with urology
[2021-07-30 20:29] VITALS: BP 131/68
[2021-07-31] MEDS ORDERED: CEPH250T PO (10:53)
== END 2021-07-30 20:30 | disposition home or self-care (01) ==
LOC: ER 15:00
DX: R33.9 Retention of urine, unspecified (principal); I10 Essential (primary) hypertension; E11.9 Type 2 diabetes mellitus without complications; Z46.6 Encounter for fitting and adjustment of urinary device; Z90.49 Acquired absence of other specified parts of digestive tract; Z98.890 Other specified postprocedural states; Z88.6 Allergy status to analgesic agent; Z79.2 Long term (current) use of antibiotics; Z79.899 Other long term (current) drug therapy
CPT/HCPCS: 51702; 99284

== ENCOUNTER 2021-07-31 07:06 | Emergency (ER) | payer OTHER, MEDICARE ==
[~2021-07-31] VITALS: Ht 182.9 cm; Wt 89.0 kg
[2021-07-31] MEDS ORDERED: LIDOcaine 2% 10ml TOPICAL JELLY (Urojet) MM ONE (10:20)
[2021-07-31 10:26] VITALS: BP 121/66
[2021-07-31] MEDS ORDERED: CEPH250T PO (10:53)
[2021-07-31 11:11] LABS: CLARITY,URINE SLIGHTLY CLOUDY (Clear); COLOR,URINE STRAW (Yellow); UA COLLECTION TYPE FOLEY CATH
[2021-07-31 11:12] LABS: GLUCOSE, URINE NEGATIVE (Neg); KETONES,URINE NEGATIVE (Neg); NITRITES, URINE NEGATIVE (Neg); OCCULT BLOOD,URINE LARGE (Neg); PROTEIN,URINE NEGATIVE (Neg)
[2021-07-31 11:13] LABS: LEUKOCYTE ESTERASE ,URINE MODERATE (Neg); UROBILINOGEN,URINE 0.2 E.U/dL (0.2-1.0)
[2021-07-31 11:18] LABS: MUCUS STRANDS FEW /LPF (Neg); SQUAMOUS EPITHELIAL CELL,UR FEW /LPF (FEW)
[2021-07-31 11:19] LABS: BACTERIA,URINE FEW /HPF (Neg); WBC,URINE 30-50 /HPF (0-4)
[2021-07-31 11:20] LABS: WBC CLUMPS,URINE MODERATE /HPF (NEGATIVE)
== END 2021-07-31 11:19 | disposition home or self-care (01) ==
LOC: ER 07:06
DX: T83.098A Other mechanical complication of other urinary catheter, initial encounter (principal); I10 Essential (primary) hypertension; E11.9 Type 2 diabetes mellitus without complications; Z88.8 Allergy status to other drugs, medicaments and biological substances
CPT/HCPCS: 51702; 81001; 87088; 99284

== ENCOUNTER 2021-12-31 16:01 | Emergency (ER) | payer OTHER, MEDICARE ==
[~2021-12-31] VITALS: Ht 182.9 cm; Wt 85.9 kg
[2021-12-31 16:48] VITALS: BP 185/93
== END 2021-12-31 20:53 | disposition home or self-care (01) ==
LOC: ER 16:02
DX: T83.098A Other mechanical complication of other urinary catheter, initial encounter (principal); Z85.46 Personal history of malignant neoplasm of prostate; G20 Parkinson's disease; I10 Essential (primary) hypertension; E11.9 Type 2 diabetes mellitus without complications; Z88.8 Allergy status to other drugs, medicaments and biological substances; Z79.2 Long term (current) use of antibiotics; Z79.4 Long term (current) use of insulin; Z79.899 Other long term (current) drug therapy; Z90.49 Acquired absence of other specified parts of digestive tract; Y84.6 Urinary catheterization as the cause of abnormal reaction of the patient, or of later complication, without mention of misadventure at the time of the procedure; Y92.89 Other specified places as the place of occurrence of the external cause
CPT/HCPCS: 51702; 99284

== ENCOUNTER 2022-01-04 23:01 | Emergency (ER) | payer OTHER, MEDICARE ==
[~2022-01-04] VITALS: Ht 182.9 cm; Wt 84.7 kg
[2022-01-04 23:09] VITALS: BP 120/75
--- NOTE | 2022-01-05 01:08 | NUR ---
Irrigated pt bladder per MD verbal instruction. Irrigated with 500 cc of fluid with 500 cc returned. Return was initially full of sediment but was clear by the end of procedure. Ibrahim was observably draining into bag at the end of the procedure.
== END 2022-01-05 04:35 | disposition home or self-care (01) ==
LOC: ER 23:02
DX: T83.091A Other mechanical complication of indwelling urethral catheter, initial encounter (principal); I10 Essential (primary) hypertension; E11.9 Type 2 diabetes mellitus without complications; F17.200 Nicotine dependence, unspecified, uncomplicated; Z90.49 Acquired absence of other specified parts of digestive tract; Z98.890 Other specified postprocedural states; Z85.9 Personal history of malignant neoplasm, unspecified; Z88.8 Allergy status to other drugs, medicaments and biological substances; Z79.4 Long term (current) use of insulin; Z79.2 Long term (current) use of antibiotics; Z79.899 Other long term (current) drug therapy; Y84.6 Urinary catheterization as the cause of abnormal reaction of the patient, or of later complication, without mention of misadventure at the time of the procedure
CPT/HCPCS: 51700; 99284

== ENCOUNTER 2024-01-14 09:36 | Outpatient (CLI) | payer MEDICARE, OTHER ==
[~2024-01-14 09:36] MED LIST changes: +CELE-148 PO; -CELE100C98 PO; -GABA-534 PO; +GABA-535 PO; +SIMV-342 PO; -SIMV20TA PO
== END 2024-01-14 23:59 | disposition home or self-care (01) ==
LOC: RAD 09:36
PROVIDERS: ATTEND Urology
DX: N40.1 Benign prostatic hyperplasia with lower urinary tract symptoms (principal); N30.01 Acute cystitis with hematuria; N39.41 Urge incontinence
CPT/HCPCS: 76770